=== PATIENT | female | born 1980 | race Caucasian/White ===

== ENCOUNTER 2017-04-20 13:58 | Emergency (ER) | payer OTHER ==
[2017-04-20 15:06] VITALS: BP 141/84
--- NOTE | 2017-04-20 16:03 | UC ---
Back Pain HPI - HPI Summary HPI Summary: Picked up 2 buckets of Ice Wednesday at work and has had on going back pain - History of Current Complaint Chief Complaint: UCBackPain Stated Complaint: BACK INJURY Time Seen by Provider: 04/20/17 15:56 Hx Obtained From: Patient Hx Last Menstrual Period: 03/21/17 ?: No Onset/Duration: Sudden Onset, Lasting Days - 4, Still Present Timing: Constant Severity Initially: Moderate Severity Currently: Moderate Pain Intensity: 6 Pain Scale Used: 0-10 Numeric Back Pain: Is Discrete @ - left side of thorasic spine Character: Aching, Stiffness Aggravating: Movement Alleviating: OTC Meds Associated Signs And Symptoms: Positive: Negative - Allergies/Home Medications Allergies/Adverse Reactions: Allergies Allergy/AdvReac Type Severity Reaction Status Date / Time Erythromycin Allergy Rash Verified 04/20/17 14:59 Home Medications: Home Medications Albuterol HFA INHALER* [Ventolin HFA Inhaler*] 1 - 2 puff INH Q6H PRN 04/20/17 [ History Confirmed 04/20/17] Cetirizine* [ZyrTEC 10 MG TAB*] 10 mg PO DAILY 04/20/17 [History Confirmed 04/20] PMH/Surg Hx/FS Hx/Imm Hx Previously Healthy: No Respiratory History: Asthma - Surgical History Surgical History: None - Family History Known Family History: Positive: None Family History: no cardio vascular issues in family lineage - Social History Occupation: Employed Full-time Lives: With Family Alcohol Use: Weekly Substance Use Type: None Smoking Status (MU): Former Smoker Have You Smoked in the Last Year: No Review of Systems Constitutional: Negative Skin: Negative Eyes: Negative ENT: Negative Respiratory: Negative Cardiovascular: Negative Gastrointestinal: Negative Genitourinary: Negative Motor: Negative Neurovascular: Negative Musculoskeletal: Myalgia - left side of thorasic spine Neurological: Negative Psychological: Negative All Other Systems Reviewed And Are Negative: Yes Physical Exam Triage Information Reviewed: Yes Appearance: Well-Appearing, No Pain Distress, Well-Nourished Vital Signs: Initial Vital Signs Temp 98.3 F 04/20/17 15:02 Pulse 67 04/20/17 15:02 Resp 16 04/20/17 15:02 BP 141/84 04/20/17 15:02 Pulse Ox 99 04/20/17 15:02 Vital Signs Reviewed: Yes Eye Exam: Normal Eyes: Positive: Conjunctiva Clear ENT Exam: Normal ENT: Positive: Normal ENT inspection, Hearing grossly normal. Negative: Nasal congestion, Nasal drainage, Trismus, Muffled/hoarse voice Dental Exam: Normal Neck exam: Normal Neck: Positive: Supple, Nontender Respiratory Exam: Normal Respiratory: Positive: Chest non-tender, Lungs clear, Normal breath sounds, No respiratory distress, No accessory muscle use Cardiovascular Exam: Normal Cardiovascular: Positive: RRR, No Murmur, Pulses Normal, Brisk Capillary Refill Abdomen Description: Negative: CVA Tenderness (R), CVA Tenderness (L) Musculoskeletal Exam: Normal Musculoskeletal: Positive: Strength Intact, ROM Intact, No Edema Neurological Exam: Normal Neurological: Positive: Alert, Muscle Tone Normal Psychological Exam: Normal Skin Exam: Normal Back Pain Course/Dx - Course Course Of Treatment: core strengthening exercise, hypertension and DASH Diet information, muscle relaxers, NSAIDs, follow with PCP and PT - Differential Dx/Diagnosis Differential Diagnosis/HQI/PQRI: Arthritis, Strain, Sprain Provider Diagnoses: Thoracic muscle strain, HBP without dx of Hypertension Discharge - Discharge Plan Condition: Stable Disposition: HOME Prescriptions: Cyclobenzaprine TAB* [Flexeril 10 MG TAB*] 10 mg PO TID PRN #15 tab PRN Reason: muscle spasm/back pain Patient Education Materials: Muscle Spasm (ED), Core Strengthening Exercises ( GEN), Thoracic Back Strain (ED), DASH Eating Plan (ED), Hypertension (ED) Referrals: [facility] [place] PHYSICIAN REFERRAL [Outside] - 2 Weeks
== END 2017-04-20 16:19 | disposition home or self-care (01) ==
LOC: UCEAST 13:58
DX: S23.3XXA Sprain of ligaments of thoracic spine, initial encounter (principal); R03.0 Elevated blood-pressure reading, without diagnosis of hypertension; X50.0XXA Overexertion from strenuous movement or load, initial encounter; Y93.9 Activity, unspecified; Y99.0 Civilian activity done for income or pay
CPT/HCPCS: 99202; G0463

== ENCOUNTER 2018-06-22 13:22 | Emergency (ER) | payer OTHER ==
[2018-06-22 14:06] VITALS: BP 117/81
--- NOTE | 2018-06-22 15:47 | ED ---
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 States worse at night, waking up 3-4 times to use her rescue inhaler. Typically uses albuterol inhaler 1-2 times a day. Denies fever, chills, chest pain. Followed by [facility]ergy [facility] clinic. Has appointment scheduled for 07/01/2018. - History of Current Complaint Chief Complaint: UCMedRefill Stated Complaint: MED REFILL Time Seen by Provider: 06/22/18 15:32 Hx Obtained From: Patient Hx Last Menstrual Period: 06/06/18 Onset/Duration: Gradual Onset Timing: Frequency Of Episodes - 3-4 times a night Initial Severity: Moderate Current Severity: None Pain Intensity: 0 Location/Character: Wheezing Aggravating Symptoms: Allergens Alleviating Symptoms: Inhalers/Nebulizers Associated Signs and Symptoms: Positive: Negative Related History: Similar Episode/Dx as - asthma exacerbation - Allergy/Home Medications Allergies/Adverse Reactions: Allergies Allergy/AdvReac Type Severity Reaction Status Date / Time erythromycin base Allergy Rash Verified 06/22/18 14:07 PMH/Surg Hx/FS Hx/Imm Hx Previously Healthy: Yes Respiratory History: Reports: Hx Asthma, Hx Seasonal Allergies Infectious Disease History: No Infectious Disease History: Denies: Hx Clostridium Difficile, Hx Hepatitis, Hx Human Immunodeficiency Virus (HIV), Hx of Known/Suspected MRSA, Hx Shingles, Hx Tuberculosis, Hx Known/ Suspected VRE, Hx Known/Suspected VRSA, History Other Infectious Disease, Traveled Outside the [place] in Last 30 Days - Family History Known Family History: Positive: None Family History: no cardio vascular issues in family lineage - Social History Occupation: Employed Full-time Lives: Alone Alcohol Use: Weekly Substance Use Type: Reports: None Smoking Status (MU): Former Smoker Have You Smoked in the Last Year: No Review of Systems Negative: Fever, Chills Positive: Nasal Discharge Negative: Chest Pain Positive: Shortness Of Breath, Cough, Other - wheezing All Other Systems Reviewed And Are Negative: Yes Physical Exam Triage Information Reviewed: Yes Vital Signs On Initial Exam: Initial Vitals Temp Pulse Resp BP Pulse Ox 98 F 97 16 117/81 100 06/22/18 14:04 06/22/18 14:04 06/22/18 14:04 06/22/18 14:04 06/22/18 14:04 Vital Signs Reviewed: Yes Appearance: Positive: Well-Appearing, No Pain Distress Skin: Positive: Warm, Skin Color Reflects Adequate Perfusion, Dry Eyes: Positive: Normal ENT: Positive: Pharynx normal, Nasal congestion Respiratory/Lung Sounds: Positive: Clear to Auscultation, Breath Sounds Present. Negative: Rales, Rhonchi, Wheezes Cardiovascular: Positive: Normal, RRR Diagnostics - Vital Signs Vital Signs Temp Pulse Resp BP Pulse Ox 06/22/18 14:04 98 F 97 16 117/81 100 - Laboratory Lab Statement: Any lab studies that have been ordered have been reviewed, and results considered in the medical decision making process. Asthma Course/Dx - Course Course Of Treatment: Patient presently without symptoms however her reports of increased frequency of symptoms especially at night are concerning for uncontrolled asthma. She has been provided with prescription for Symbicort 160 mg 2 puffs twice daily and encouraged to keep her appointment with the [facility]ergy and Asthma center scheduled for 07/01/2018. Verbalizes understanding and agrees with POC. Assessment/Plan: Asthma - Diagnoses Differential Diagnosis/HQI/PQRI: Positive: Reactive Airway Disease Provider Diagnoses: Asthma Is Visit Related: No Discharge - Sign-Out/Discharge Documenting (check all that apply): Patient Departure - Discharge Plan Condition: Stable Disposition: HOME Prescriptions: Budesonide/Formote 160/4.5(NF) [Symbicort 160/4.5 (NF)] 1 puff INH BID #1 mdi Referrals: No Primary Care Phys,NOPCP [Primary Care Provider] - Romero Ribeiro MD [Medical Doctor] - 07/01/18 - Billing Disposition and Condition Condition: STABLE Disposition: Home
== END 2018-06-22 16:10 | disposition home or self-care (01) ==
LOC: UCEAST 13:22
DX: J45.909 Unspecified asthma, uncomplicated (principal); Z76.0 Encounter for issue of repeat prescription; Z88.1 Allergy status to other antibiotic agents; Z87.891 Personal history of nicotine dependence
CPT/HCPCS: 99211; G0463

== ENCOUNTER 2018-10-01 15:55 | Emergency (ER) | payer OTHER ==
[2018-10-01 16:04] VITALS: BP 117/83
--- NOTE | 2018-10-01 16:41 | UC ---
Skin Complaint HPI - HPI Summary HPI Summary: 38 y/o female with two complaints 1) inguinal LAD b/l, small, L tender, no fever, chills, no vaginal complaints, discharge, pain, no bowel/ urinary symptoms, no abdominal pains. no prior occurence. 2) decreased sensation, pins and needles 5, 4th fingers right hand. 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 improving over past few days. prior occurence ~ 15+ years ago. - History of Current Complaint Chief Complaint: UCUpperExtremity Time Seen by Provider: 10/01/18 16:11 Stated Complaint: SWOLLEN LYMPH NODES IN THIGH, AND HAND NUMBNESS Hx Obtained From: Patient Hx Last Menstrual Period: now ?: No Onset/Duration: Sudden Onset Timing: Constant Current Severity: Mild Pain Intensity: 2 Pain Scale Used: 0-10 Numeric - Allergy/Home Medications Allergies/Adverse Reactions: Allergies Allergy/AdvReac Type Severity Reaction Status Date / Time erythromycin base Allergy Rash Verified 06/22/18 14:07 Review of Systems All Other Systems Reviewed And Are Negative: Yes Musculoskeletal: Positive: Edema, Myalgia Neurological: Positive: Paresthesia Is Patient Immunocompromised?: No PMH/Surg Hx/FS Hx/Imm Hx Previously Healthy: Yes - Surgical History Surgical History: None - Family History Known Family History: Positive: None Family History: no cardio vascular issues in family lineage - Social History Alcohol Use: Occasionally Substance Use Type: None Smoking Status (MU): Former Smoker Have You Smoked in the Last Year: No Physical Exam Triage Information Reviewed: Yes Appearance: Well-Appearing, No Pain Distress, Well-Nourished Vital Signs: Initial Vital Signs Temp 97.8 F 10/01/18 16:00 Pulse 87 10/01/18 16:00 Resp 18 10/01/18 16:00 BP 117/83 10/01/18 16:00 Pulse Ox 98 10/01/18 16:00 Eyes: Positive: Conjunctiva Clear Abdomen Description: Positive: Nontender, No Organomegaly, Soft, Bruit, Other: - tender 1cm mobile LAD x 1 on right femoral? groin with imilar fingidng contralaterally, nontender mobidl 1cm LN. no erythema, drainage, tender= mild , no ther LAD palpable. Musculoskeletal: Positive: Strength Intact - Right hand, wrist, elbow. tTP over medial epidondyle, palpation over cubital tunnel reproduces symptoms. sensation decreased to light touch over 5, 4 th fingers cap refill < 2 seconds all fingers R hand Course/Dx - Course Course Of Treatment: Discussed with Dr. Stanton, course of ABX for LAD, return in ~ 5 days if no improvement for labs, imaging. Short course steroids fr cubital tunnel followed by 2-3 days NSAIDs w cnservative treatments, rest. referral to ortho if no improvement. - Differential Diagnoses - Skin Complaint Differential Diagnoses: Cellulitis, Poison Jeimy - Diagnoses Provider Diagnoses: lymphadenopathy, inguinal bilateral. cubital tunnel, right Discharge - Sign-Out/Discharge Documenting (check all that apply): Patient Departure All imaging exams completed and their final reports reviewed: No Studies - Discharge Plan Condition: Good Disposition: HOME Prescriptions: Cephalexin CAP* [Keflex CAP*] 500 mg PO TID #21 cap predniSONE TAB* [Deltasone 20 MG TAB*] 20 mg PO DAILY #3 tab Patient Education Materials: Lymphadenopathy (ED), Cubital Tunnel Syndrome (ED) Referrals: No Primary Care Phys,NOPCP [Primary Care Provider] - Additional Instructions: - ANtibiotics as prescribed - Short course of steroids for cubital tunnel, increase rest, keep elbow between 45-90 degrees. Naproxen twice daily for 3-5 days after steroids completed. - Continue to monitor groin lymphadenopathy. Return if no resolution in 3-5 days for possible imaging, blood work. - Billing Disposition and Condition Condition: GOOD Disposition: Home
== END 2018-10-01 16:53 | disposition home or self-care (01) ==
LOC: UCEAST 15:55
DX: R59.0 Localized enlarged lymph nodes (principal); G56.21 Lesion of ulnar nerve, right upper limb; Z88.1 Allergy status to other antibiotic agents; Z87.891 Personal history of nicotine dependence
CPT/HCPCS: 99212; G0463

== ENCOUNTER 2018-12-10 00:48 | Emergency (ER) | payer BC, OTHER ==
[2018-12-10 00:54] VITALS: BP 137/96
[2018-12-10] MEDS ORDERED: Albuterol/Ipratropium NEB.SOL* Albuterol 2.5 MG/Ipratropium 0.5 MG 3 ML INH ONE (02:35)
[2018-12-10] MEDS ORDERED: Albuterol 2.5 MG/3 ML NEB.SOL* (0.083%) INH ONE (02:35)
[2018-12-10] MEDS ORDERED: predniSONE TAB* 20 MG PO ONE (02:36)
--- NOTE | 2018-12-10 02:43 | ED ---
Respiratory - HPI Summary HPI Summary: This patient is a 38 year old F with hx asthma presenting to [facility] with a chief complaint of dyspnea since 23:00. The patient notes that she has previously experienced similar symptoms but they only occur every few years. Patient suspects that it is her allergies acting up. The patient rates the pain 1/10 in severity. Symptoms aggravated by nothing. Symptoms alleviated by nothing. Pt denies cough, nasal congestion, hoarseness. Patient reports she tried using her inhaler but it did not alleviate her symptoms. - History of Current Complaint Chief Complaint: EDAsthma Stated Complaint: DIFF BREATHING Hx Obtained From: Patient Onset/Duration: Sudden Onset, Lasting Hours, Still Present Initial Severity: Mild Current Severity: Mild Pain Intensity: 1 Character: Wheezing, Dyspnea at Rest Aggravating Factor(s): Nothing Alleviating Factor(s): Nothing Associated Signs and Symptoms: Negative - negative hoarseness, negative nasal congestion, negative cough - Allergy/Home Medications Allergies/Adverse Reactions: Allergies Allergy/AdvReac Type Severity Reaction Status Date / Time erythromycin base Allergy Rash Verified 06/22/18 14:07 PMH/Surg Hx/FS Hx/Imm Hx Respiratory History: Reports: Hx Asthma, Hx Seasonal Allergies Opthamlomology History: Denies: Hx Legally Blind EENT History: Denies: Hx Deafness - Surgical History Surgery Procedure, Year, and Place: none reported Infectious Disease History: No Infectious Disease History: Denies: Hx Clostridium Difficile, Hx Hepatitis, Hx Human Immunodeficiency Virus (HIV), Hx of Known/Suspected MRSA, Hx Shingles, Hx Tuberculosis, Hx Known/ Suspected VRE, Hx Known/Suspected VRSA, History Other Infectious Disease, Traveled Outside the [place] in Last 30 Days - Family History Known Family History: Negative: Cardiac Disease, Hypertension Family History: no cardio vascular issues in family lineage - Social History Alcohol Use: Occasionally Substance Use Type: Reports: None Smoking Status (MU): Former Smoker Have You Smoked in the Last Year: No Review of Systems Negative: Fever Negative: Nasal Discharge Positive: Shortness Of Breath. Negative: Cough Negative: Vomiting Negative: Headache All Other Systems Reviewed And Are Negative: Yes Physical Exam - Summary Physical Exam Summary: VITAL SIGNS: Reviewed. GENERAL: Patient is a well-developed and nourished FEMALE who is lying comfortable in the stretcher. Patient is not in any acute respiratory distress. HEAD AND FACE: No signs of trauma. No ecchymosis, hematomas or skull depressions. No sinus tenderness. EYES: PERRLA, EOMI x 2, No injected conjunctiva, no nystagmus. EARS: Hearing grossly intact. Ear canals and tympanic membranes are within normal limits. MOUTH: Oropharynx within normal limits. NECK: Supple, trachea is midline, no adenopathy, no JVD, no carotid bruit, no c- spine tenderness, neck with full ROM. CHEST: Symmetric, no tenderness at palpation LUNGS: No crackles. Bilateral respiratory wheezes. CVS: Regular rate and rhythm, S1 and S2 present, no murmurs or gallops appreciated. ABDOMEN: Soft, non-tender. No signs of distention. No rebound no guarding, and no masses palpated. Bowel sounds are normal. EXTREMITIES: FROM in all major joints, no edema, no cyanosis or clubbing. NEURO: Alert and oriented x 3. No acute neurological deficits. Speech is normal and follows commands. SKIN: Dry and warm Triage Information Reviewed: Yes Vital Signs On Initial Exam: Initial Vitals Temp Pulse Resp BP Pulse Ox 98.2 F 85 24 137/96 96 12/10/18 00:49 12/10/18 00:49 12/10/18 00:49 12/10/18 00:49 12/10/18 00:49 Vital Signs Reviewed: Yes Diagnostics - Vital Signs Vital Signs Temp Pulse Resp BP Pulse Ox 12/10/18 02:32 91 96 12/10/18 00:49 98.2 F 85 24 137/96 96 - Laboratory Lab Statement: Any lab studies that have been ordered have been reviewed, and results considered in the medical decision making process. Re-Evaluation - Re-Evaluation 1st re-eval Re-Evaluation Time: 03:16 Change: Improved Comment: Patient feels better. Her lungs are clear to auscultation Disposition - Course Course Of Treatment: This patient is a 38 year old F with hx asthma presenting to [facility] with a chief complaint of dyspnea since 23:00. The patient notes that she has previously experienced similar symptoms but they only occur every few years. Patient suspects that it is her allergies acting up. The patient rates the pain 1/10 in severity. Symptoms aggravated by nothing. Symptoms alleviated by nothing. Pt denies cough, nasal congestion, hoarseness. Patient reports she tried using her inhaler but it did not alleviate her symptoms. In the ED course the patient was given prednisone and albuterol. Patient will be discharged with follow up from PCP. The patient is agreeable with this plan. Dx asthma - Diagnoses Provider Diagnoses: Asthma Discharge - Sign-Out/Discharge Documenting (check all that apply): Patient Departure - discharge - Discharge Plan Condition: Stable Disposition: HOME Patient Education Materials: Asthma (ED) Referrals: [facility] [Outside] Additional Instructions: Follow up with your primary care physician in 1-2 days. Return to the emergency department with any new or worsening symptoms. - Attestation Statements Document Initiated by Scribe: Yes Documenting Scribe: Kaycee Lees Provider For Whom Scribe is Documenting (Include Credential): Bia Cifuentes MD Scribe Attestation: Kaycee Montoya, scribed for Bia Cifuentes MD on 12/10/18 at 0318. Status of Scribe Document: Ready
[2018-12-10] MEDS ORDERED: Albuterol HFA INHALER* 8 gm MDI INH ONE (03:30)
[2018-12-10] MEDS ORDERED: Albuterol HFA INHALER* 8 gm MDI INH SCH (04:00)
== END 2018-12-10 03:34 | disposition home or self-care (01) ==
LOC: ED 00:48
DX: J45.909 Unspecified asthma, uncomplicated (principal); R06.02 Shortness of breath; Z87.891 Personal history of nicotine dependence
CPT/HCPCS: 99282; A9270-GY; J7512

== ENCOUNTER 2019-08-09 01:15 | Observation (INO) | payer BC ==
[2019-08-09] MEDS ORDERED: Dexamethasone IV* 4 MG/ML 5 ML VIAL (20 MG) IVPB ONE (01:58)
[2019-08-09] MEDS ORDERED: Magnesium Sulfate 2 GM IV* 2 GM/50 ML BAG IVPB ONE (01:58)
[2019-08-09] MEDS ORDERED: Dexamethasone IV* 4 MG/ML 5 ML VIAL (20 MG) ONE (02:00)
[2019-08-09] MEDS ORDERED: Lactated Ringers 1000 ML Bag* 1,000 ML IV ONE ×2 (02:00→04:00)
[2019-08-09] MEDS: Albuterol/Ipratropium NEB.SOL* Albuterol 2.5 MG/Ipratropium 0.5 MG 3 ML INH SCH ×3 (02:09→02:43)
--- NOTE | 2019-08-09 03:09 | ED ---
Respiratory - HPI Summary HPI Summary: This pt is a 39 Y/O F presenting to [facility] with a CC of an asthma attack that occurred 20 minutes POWDER WORK[employer] T[employer]. She states that she has a persistent cough which was non-productive. She states that she has allergy induced asthma and took her inhaler at home 6 times to no effect. She states that she has had nasal congestion and increased mucus production. She also stated that she was having palpitations described as fast and had a previous ailment prior to the asthma attack. She stated no aggravating or alleviating factors. She has a PMHx of allergies and seasonal allergies. - History of Current Complaint Chief Complaint: EDAsthma Stated Complaint: SOB PER PT Time Seen by Provider: 08/09/19 01:58 Hx Obtained From: Patient Onset/Duration: Sudden Onset, Still Present Timing: Constant Initial Severity: Mild Current Severity: None Pain Intensity: 0 Character: Wheezing Sputum Amount: None Aggravating Factor(s): Passive Smoke Exposure Alleviating Factor(s): Nothing Associated Signs and Symptoms: SOB, Chest Pain with Cough, Nasal Congestion - Allergy/Home Medications Allergies/Adverse Reactions: Allergies Allergy/AdvReac Type Severity Reaction Status Date / Time erythromycin base Allergy Rash Verified 06/22/18 14:07 PMH/Surg Hx/FS Hx/Imm Hx Previously Healthy: Yes Respiratory History: Reports: Hx Asthma, Hx Seasonal Allergies Denies: Hx Chronic Obstructive Pulmonary Disease (COPD) Sensory History: Denies: Hx Legally Blind, Hx Deafness Opthamlomology History: Denies: Hx Legally Blind - Surgical History Surgery Procedure, Year, and Place: none reported Infectious Disease History: No Infectious Disease History: Denies: Hx Clostridium Difficile, Hx Hepatitis, Hx Human Immunodeficiency Virus (HIV), Hx of Known/Suspected MRSA, Hx Shingles, Hx Tuberculosis, Hx Known/ Suspected VRE, Hx Known/Suspected VRSA, History Other Infectious Disease, Traveled Outside the [place] in Last 30 Days - Family History Known Family History: Negative: Cardiac Disease, Hypertension Family History: no cardio vascular issues in family lineage - Social History Lives: With Family Alcohol Use: Occasionally Hx Substance Use: No Substance Use Type: Reports: None Hx Tobacco Use: Yes Smoking Status (MU): Former Smoker Have You Smoked in the Last Year: No Review of Systems ENT: Other - nasal congestion Positive: Shortness Of Breath, Cough All Other Systems Reviewed And Are Negative: Yes Physical Exam - Summary Physical Exam Summary: Constitutional: Well-developed, Well-nourished, Alert. (-) Distressed Skin: Warm, Dry HENT: Normocephalic; Atraumatic Eyes: Conjunctiva normal Neck: Musculoskeletal ROM normal neck. (-) JVD, (-) Stridor, (-) Nuchal rigidity Cardio: Rhythm regular, rate normal, Heart sounds normal; Intact distal pulses; Radial pulses are 2+ and symmetric. (-) Murmur Pulmonary/Chest wall: Effort normal. (-) Respiratory distress, Tiny bit of wheezing at the end of the expiratory phase in the upper lobes (-) Rales Abd: Soft, (-) tenderness, (-) Distension, (-) Guarding, (-) Rebound Musculoskeletal: (-) Edema Lymph: (-) Cervical adenopathy Neuro: Alert, Oriented x3 Psych: Mood and affect Normal Triage Information Reviewed: Yes Vital Signs On Initial Exam: Initial Vitals Temp Pulse Resp BP Pulse Ox 99.7 F 123 24 143/109 96 08/09/19 01:16 08/09/19 01:16 08/09/19 01:16 08/09/19 01:16 08/09/19 01:16 Vital Signs Reviewed: Yes Diagnostics - Vital Signs Vital Signs Temp Pulse Resp BP Pulse Ox 08/09/19 02:44 122 15 98 08/09/19 01:49 114 95 08/09/19 01:48 116 143/86 96 08/09/19 01:16 99.7 F 123 24 143/109 96 - Laboratory Result Diagrams: 08/09/19 03:32 08/09/19 03:32 Lab Statement: Any lab studies that have been ordered have been reviewed, and results considered in the medical decision making process. - Radiology CXR Radiology Interpretation Completed By: ED Physician Summary of Radiographic Findings: No acute cardiopulmonary processes. Pending offical review - CT Chest/Thorax CTA CT Interpretation Completed By: Radiologist Summary of CT Findings: 1. Mucous plugging of posterior branches of the left lower lobe bronchus. 2. Suboptimal opacification of pulmonary arteries. No gross central pulmonary embolism is identified. Emboli beyond first order branching are not excluded. ED physician has reviewed this report. - EKG 0325 Cardiac Rate: Tachycardia - 137 BPM EKG Rhythm: Sinus Tachycardia Summary of EKG Findings: EKG at 0325 shows Sinus tachycardia at 137 BPM and diffuse non-specific ST and T wave abnormalities. AVR with inferior lateral changes. Interpreted by Dr. Milan at 0327 08/09/19. Disposition - Course Course Of Treatment: This pt is a 39 Y/O F presenting to [facility] with a CC of an asthma attack that occurred 20 minutes POWDER WORK[employer] T[employer]. She states that she has a persistent cough which was non-productive. She states that she has allergy induced asthma and took her inhaler at home 6 times to no effect. Her PE found that she had Tiny bit of wheezing at the end of the expiratory phase in the upper lobes. Her EKG at 0325 shows Sinus tachycardia at 137 BPM and diffuse non -specific ST and T wave abnormalities. AVR with inferior lateral changes. Her Chest/Thorax CTA shows the followin. Mucous plugging of posterior branches of the left lower lobe bronchus. 2. Suboptimal opacification of pulmonary arteries. No gross central pulmonary embolism is identified. Emboli beyond first order branching are not excluded. She will be admitted to [facility] for elevated HR. The CTA ruled out a central PE but was unable to rule out a peripheal PE. She still has tachycardia and will be admitted for that. - Diagnoses Provider Diagnoses: Tachycardia Discharge ED - Sign-Out/Discharge Documenting (check all that apply): Patient Departure - admitted Patient Received Moderate/Deep Sedation with Procedure: No - Discharge Plan Condition: Guarded Disposition: ADMITTED TO [facility] Referrals: No Primary Care Phys,NOPCP [Primary Care Provider] - - Billing Disposition and Condition Condition: GUARDED Disposition: Admitted to [facility] - Attestation Statements Document Initiated by Guillermo: Yes Documenting Scribe: Marcell Chaudhary Provider For Whom Guillermo is Documenting (Include Credential): Trell Milan MD Scribe Attestation: Marcell Montoya scribed for Trell Milan MD on 08/09/19 at 0759. Scribe Documentation Reviewed: Yes Provider Attestation: The documentation as recorded by the Marcell hernández accurately reflects the service I personally performed and the decisions made by me, Trell Milan MD Status of Scribe Document: Viewed
[2019-08-09] MEDS ORDERED: Midazolam* 1 MG/ML 5 ML VIAL (5 MG) IV SLOW PU ONE (03:15)
[2019-08-09 03:41] LABS: ABS Eosinophils 0.5 10^3/ul (0-0.6); ABS Lymphocytes 0.9 10^3/ul (1.0-4.8); ABS Monocytes 0.5 10^3/ul (0-0.8); ABS Neutrophils 9.5 10^3/ul (1.5-7.7); Hematocrit 40 % (35-47); Hemoglobin 13.3 g/dL (12.0-16.0); Lymphocyte % 7.8 %; Mean Corpuscular HGB Conc 34 g/dL (31-36); Mean Corpuscular Hemoglobin 30 pg (27-31); Mean Corpuscular Volume 91 fL (80-97); Mean Platelet Volume 8.1 fL (7.4-10.4); Platelet Count 138 10^3/uL (150-450); Red Blood Count 4.37 10^6 /uL (3.70-4.87); Red Cell Distribution Width 14 % (10-15); White Blood Count 11.4 10^3/uL (3.5-10.8)
[2019-08-09 03:57] LABS: BUN/Creatinine Ratio 16.1 (8-20); Calcium 8.3 mg/dL (8.6-10.3); EGFR African American 129.7 (>60); EGFR Non-African American 107.2 (>60); Potassium 2.9 mmol/L (3.5-5.0)
[2019-08-09] MEDS ORDERED: Iohexol 350* (CONTRAST) 500 ML MDV IV ONE (05:57)
[2019-08-09] MEDS ORDERED: Potassium Chlor TAB* 20 MEQ TAB.ER PO ONE ×2 (06:01→10:00)
--- NOTE | 2019-08-09 07:11 | ED ---
Progress - Progress Note Progress Note: This patient is a sign-out at 0700 on 08/09/19 at shift change from Dr. Trell Milan to Dr. Denver Simon pending CTA chest/thorax and disposition. Course/Dx - Course Course Of Treatment: This patient is a sign-out at 0700 on 08/09/19 at shift change from Dr. Trell Milan to Dr. Denver Simon pending CTA chest/thorax and disposition. Discharge ED - Sign-Out/Discharge Documenting (check all that apply): Receiving Sign-Out Receiving patient FROM: Trell Milan - Discharge Plan Referrals: No Primary Care Phys,NOPCP [Primary Care Provider] - - Attestation Statements Document Initiated by Scribe: Yes Documenting Scribe: Buck Alfaro Provider For Whom Scribe is Documenting (Include Credential): Denver Simon MD Scribe Attestation: IBuck, scribed for Denver Simon MD on 08/09/19 at 0709.
--- NOTE | 2019-08-09 07:47 | ED ---
Progress - Progress Note Progress Note: This patient is a sign-out at 0700 on 08/09/19 at shift change from Dr. Trell Milan to Dr. Denver Simon pending CTA head/neck and disposition. - Results/Orders Results/Orders: CTA head/thorax: 1. Mucous plugging of posterior branches of the left lower lobe bronchus. 2. Suboptimal opacification of pulmonary arteries. No gross central pulmonary embolism is identified. Emboli beyond first order branching are not excluded. Dr. Simon has reviewed this radiology report. Course/Dx - Course Course Of Treatment: This patient is a sign-out at 0700 on 08/09/19 at shift change from Dr. Trell Milan to Dr. Denver Simon pending CTA head/neck and disposition. CTA head/thorax: 1. Mucous plugging of posterior branches of the left lower lobe bronchus. 2. Suboptimal opacification of pulmonary arteries. No gross central pulmonary embolism is identified. Emboli beyond first order branching are not excluded. Discussed patient case with Dr. Madison, hospitalist , who accepted the patient for admission to [facility]. Patient will be admitted to [facility] with dx of tachycardia. Patient understands and agrees with this plan. - Diagnoses Provider Diagnoses: Tachycardia - Provider Notifications Discussed Care Of Patient With: Mary Madison Time Discussed With Above Provider: 07:20 Instructed by Provider To: Admit As Inpatient - Discussed patient case with Dr. Madison, hospitalist, who accepted patient for admission to [facility]. Discharge ED - Sign-Out/Discharge Documenting (check all that apply): Patient Departure - Admit - Discharge Plan Condition: Fair Disposition: ADMITTED TO [facility] Referrals: No Primary Care Phys,NOPCP [Primary Care Provider] - - Attestation Statements Document Initiated by Scribe: Yes Documenting Scribe: Buck Alfaro Provider For Whom Scribe is Documenting (Include Credential): Denver Simon MD Scribe Attestation: Buck Montoya, scribed for Denver Simon MD on 08/09/19 at 0802. Status of Scribe Document: Ready
[2019-08-09] MEDS: Mometasone/Formoter 200/5 MDI INH SCH ×2 (09:17→19:26)
[2019-08-09] MEDS: guaiFENesin ER TAB 600 MG PO SCH ×2 (10:07→20:42)
[2019-08-09] MEDS: methylPREDNISolone SOD 40 MG* 1 ML VIAL IV SCH ×2 (10:07→20:42)
[2019-08-09] MEDS: DOXYcycline CAP(*) 100 MG PO SCH ×2 (10:07→20:42)
[2019-08-09] MEDS: Albuterol 2.5 MG/3 ML NEB.SOL* (0.083%) INH SCH ×4 (11:39→23:07)
[2019-08-09 15:21] LABS: Potassium 3.5 mmol/L (3.5-5.0)
--- NOTE | 2019-08-09 18:59 | HP ---
HISTORY AND PHYSICAL: DATE OF ADMISSION: 08/09/19 PRIMARY CARE PROVIDER: None. CHIEF COMPLAINT: Wheezing. HISTORY OF PRESENT ILLNESS: Ms. Georges is a 39-year-old female, who has a history of allergy-induced asthma, who presents to the emergency room with complaints of wheezing. The patient states that last week, she felt as if her allergies were bad. She took some Zyrtec. She used her Symbicort for a day. She generally improved. Approximately 2 days ago, she felt as if she was getting a cold. She developed cough. She felt like she was drowning in mucus. She took some Mucinex D without any improvement. At approximately 6:00 p.m. on the night prior to admission, the patient was at work and noticed that she was wheezing significantly. She used her albuterol inhaler 6 times in a short period of time. She then used her steroid inhaler when she got home and her albuterol inhaler again. The patient ultimately presented to the emergency room due to the persistent wheezing. She denies any history of being hospitalized for asthma in the past. PAST MEDICAL HISTORY: 1. Asthma. 2. Environmental allergies. PAST SURGICAL HISTORY: None. MEDICATIONS: 1. Cetirizine 10 mg p.o. daily p.r.n. allergies. 2. Albuterol 2 puffs inhaled q.6 hours p.r.n. wheezing. ALLERGIES: PENICILLIN. FAMILY HISTORY: Mom is living. She is in her 60s and healthy. Dad is also living. He is in his 60s and healthy. The patient's paternal grandfather had MIs at an early age. SOCIAL HISTORY: The patient does not smoke. She drinks alcohol on occasion. She does not use any recreational drugs. 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 She has significant other, though they are not . She has no children. She indicates her mom will be her healthcare proxy. REVIEW OF SYSTEMS: A complete 11-system review of systems is obtained. Pertinent positives and negatives are as per HPI and otherwise negative. PHYSICAL EXAMINATION GENERAL: The patient is a well-developed young female, seemed sitting up in the stretcher, audibly wheezing, but in no acute distress. VITAL SIGNS: Blood pressure 116/75, pulse 99, respirations 22, temp 97.3, O2 sat 96% on room air. HEENT: Pupils equal, round. Extraocular muscles are intact. Oropharynx is clear. Oral mucosa is moist. PULMONARY: Lungs are clear to auscultation bilaterally with diffuse wheezing. Breath sounds are also tight. CARDIAC: Normal S1, S2. Heart rate is mildly tachycardic. I do not appreciate any murmurs. ABDOMEN: Bowel sounds present. Abdomen is soft, nontender, nondistended. MUSCULOSKELETAL: There is no cyanosis or clubbing of the digits. There is full active range of motion of all 4 extremities. SKIN: Warm and dry. There are no rashes. NEUROLOGIC: Cranial nerves II through XII are grossly intact. Sensation is intact to light touch throughout. Strength is 5/5 and symmetric in both upper and lower extremities bilaterally. PSYCHIATRIC: The patient is alert. She is oriented x3. Affect appears appropriate. DIAGNOSTIC STUDIES/LAB DATA: WBC 11.4, hemoglobin 13.3, hematocrit 40, platelets 138. Sodium 139, potassium 2.9, chloride 105, CO2 of 26, BUN 10, creatinine 0.62, glucose 177, calcium 8.3, troponin 0. Chest x-ray reveals no acute cardiopulmonary process. CTA chest reveals mucus plugging of the posterior branches of the left lower lobe bronchus. There was suboptimal opacification of the pulmonary arteries. No gross central pulmonary embolism is identified. EKG reveals sinus tachycardia with ST depression in the anterolateral leads. ASSESSMENT AND PLAN: Ms. Georges is a 39-year-old female with a history of environmental allergies and asthma, who began to become ill last week, who now has substantial wheezing without improvement, despite several doses of albuterol at home. 1. Asthma exacerbation. At this point, the patient will be admitted and placed on [id number] nebulizer treatment. Additionally, she will be started on Solu- Medrol 40 mg IV q.12 hours. I am concerned that she may have bronchitis given her history of coughing and significant sputum production. I will initiate doxycycline 100 mg p.o. twice daily. The patient will also be continued on a steroid inhaler. 2. Hypokalemia. I suspect this is related to the substantial albuterol use. The patient received 40 mEq of potassium in the ER. We will give another 20 mEq now and repeat her potassium this afternoon. 3. DVT prophylaxis. According to the Adult Thrombosis Prophylaxis Risk Factor Assessment Guide, the patient has a total risk factor score of 0 making her low risk. Ambulation will be utilized as DVT prophylaxis. 4. Code status is full. TIME SPENT: Fifty minutes was spent admitting this patient. [id number]/[facility] #: [id number] GARRETT
[2019-08-10] MEDS: Albuterol 2.5 MG/3 ML NEB.SOL* (0.083%) INH SCH ×4 (03:40→15:18)
[2019-08-10] MEDS: Mometasone/Formoter 200/5 MDI INH SCH (07:28)
[2019-08-10] MEDS: DOXYcycline CAP(*) 100 MG PO SCH (09:57)
[2019-08-10] MEDS: guaiFENesin ER TAB 600 MG PO SCH (09:57)
[2019-08-10] MEDS: methylPREDNISolone SOD 40 MG* 1 ML VIAL IV SCH (09:57)
[2019-08-10 11:37] VITALS: BP 115/75
--- NOTE | 2019-08-10 21:39 | DS ---
CC: [facility].* DISCHARGE SUMMARY: DATE OF ADMISSION: 08/09/19 DATE OF DISCHARGE: 08/10/19 PRIMARY CARE PROVIDER: To be established at [facility]. PRINCIPAL DIAGNOSIS: Asthma exacerbation secondary to likely bronchitis. SECONDARY DIAGNOSIS: Environmental allergies. DISCHARGE MEDICATIONS: 1. Zyrtec 10 mg p.o. daily p.r.n. allergy. 2. Prednisone 40 mg p.o. daily x2 days, then 30 mg x2 days, then 20 mg x2 days , then 10 mg x2 days. 3. Guaifenesin ER 600 mg p.o. b.i.d. until congestion clears. 4. Fluticasone/salmeterol 55/14 1 puff inhaled twice daily. 5. Doxycycline 100 mg p.o. b.i.d. x12 doses. 6. Albuterol HFA 2 puffs inhaled q.4 hours p.r.n. shortness of breath. 7. Albuterol neb 1 neb inhaled q.4 hours p.r.n. shortness of breath. HOSPITAL COURSE: Ms. Georges is a 39-year-old female who presented to the emergency room on 08/09/19 with complaints of persistent wheezing. The patient was found to have significant wheezing that was refractory initially to albuterol treatments. The patient was admitted and started on [id number] albuterol treatments as well as IV steroids and doxycycline per presumed bronchitis. The patient on initial presentation was audibly wheezy without needing to use a stethoscope. At the time of discharge, the patient's breathing was clear and there was no wheezing noted. The patient states she was feeling much improved. My suspicion is the patient may have developed an asthma exacerbation secondary to bronchitis. The patient was saturating well on room air at 97%. She was initially tachycardic when she presented to the emergency room and this is resolved. At this point, the patient is felt to be stable for discharge home. PHYSICAL EXAMINATION: On the day of discharge, the patient is awake, alert, and oriented, sitting up in bed, in no acute distress. Cardiac exam revealed a normal S1, S2 with a regular rate and rhythm. Her lungs were clear and without any wheezing. Abdomen was soft, nontender, nondistended. The patient moves all 4 extremities symmetrically. Skin was warm and dry. FOLLOWUP CONCERNS: The patient is being discharged home today 08/10/19. Activity level is as tolerated. Diet is regular. Condition on discharge is stable. TIME SPENT: Twenty five minutes was spent discharging this patient. [id number]/[facility] #: [id number] GARRETT
== END 2019-08-10 14:10 | disposition home or self-care (01) ==
LOC: ED 01:15 → MED 08:31
PROVIDERS: ADMIT Hospitalist; ATTEND Hospitalist
DX: J45.901 Unspecified asthma with (acute) exacerbation (principal); E87.6 Hypokalemia; Z91.09 Other allergy status, other than to drugs and biological substances; Z88.0 Allergy status to penicillin; R00.0 Tachycardia, unspecified; R06.02 Shortness of breath; R07.9 Chest pain, unspecified; Z87.891 Personal history of nicotine dependence
CPT/HCPCS: 36415; 71046; 71275; 80048; 80051; 84484; 85025; 93005; 94640; 96365; 96375; 96376; 99285; A9270-GY; G0378; J1100; J2250; J2920; J3475